=== PATIENT | female | born 1965 | race Caucasian/White ===

== ENCOUNTER 2018-11-20 11:37 | Emergency (ER) | payer BC ==
[2018-11-20 12:52] LABS: BASO % 0.2 % (0-6); EOS % 2.7 % (0-6); GRAN % 56.9 % (47-80); HEMOGLOBIN 11.9 gm/dl (11.6-16.0); LYMPH % 33.9 % (16-45); MEAN CORPUSCULAR HGB CONC 33.1 g/dl (32-36); MONO % 6.3 % (0-9); PLATELET COUNT 149 K/uL (130-400); RED CELL DISTRIBUTION WIDTH 13.9 % (11.5-14.5); WHITE BLOOD COUNT W/O DIFF 4.1 K/uL (4.2-12.2)
[2018-11-20 13:07] LABS: BLOOD UREA NITROGEN 14 mg/dL (6-20); CREATININE 0.8 mg/dL (0.5-0.9); EST GLOMERULAR FILTRATION RATE > 60 mL/min
[2018-11-20 13:09] LABS: GLUCOSE,RANDOM 136 mg/dL (74-109)
[2018-11-20 13:12] LABS: ALB/GLOB RATIO 1.1 (1.1-1.8); ALBUMIN 3.2 g/dL (4.0-5.0); ALKALINE PHOSPHATASE 46 U/L (45-87); ALT/SGPT 10 U/L (<33); AST/SGOT 18 U/L (10.0-35.0)
--- NOTE | 2018-11-20 14:02 | Emergency Department Record ---
History of Present Illness - General Chief complaint: Lower Extremity Pain Stated complaint: LEGS SWOLLEN,RED,SORE Time Seen by Provider: 11/20/18 12:20 Source: Patient Mode of Arrival: Ambulatory Limitations: No limitations - History of Present Illness Initial comments: pt has swelling of her calves, left is greater then r. they are painful. she has never had anything like this before. no trips recently MD Complaint: Extremity pain, Extremity swelling Onset/Timin -: Week(s) Location: Bilateral, Ankle, Lower Leg History of Same: No Radiation: Proximal, Distal Severity scale (1-10): 1 Quality: Aching Consistency: Constant Improves with: Nothing Worsens with: Other Associated Symptoms: Denies other symptoms - Related Data Home Medications Medication Instructions Recorded Confirmed Last Taken Acetaminop W/ Codeine 300/30Mg 1 tab PO Q4H PRN 11/20/18 11/20/18 Unknown [Tylenol #3] Butalb/Acetaminophen/Caffeine 1 each PO Q4H 11/20/18 11/20/18 Unknown [Fioricet] Carvedilol [Coreg] 6.25 mg PO BID 11/20/18 11/20/18 11/20/18 Diazepam [Valium] 5 mg PO QHS 11/20/18 11/20/18 Unknown Gabapentin [Neurontin] 300 mg PO BID 11/20/18 11/20/18 11/20/18 Mometasone Furoate [Elocon] 15 gm TP ASDIR 11/20/18 11/20/18 Unknown Norethindrone-Ethinyl Estrad 1 each PO DAILY 11/20/18 11/20/18 11/20/18 [Nortrel] Rizatriptan Benzoate [Maxalt] 10 mg PO ASDIR 11/20/18 11/20/18 Unknown Allergies Allergy/AdvReac Type Severity Reaction Status Date / Time No Known Drug Allergies Allergy Verified 11/20/18 11:59 Travel Screening - Travel/Exposure Within Last 30 Days Have you traveled within the last 30 days?: No Review of Systems Reviewed: No additional complaints except as noted below Constitutional: Reports: As per HPI. Denies: Chills, Fever, Malaise, Night sweats, Weakness, Weight change Eyes: Reports: As per HPI. Denies: Eye discharge, Eye pain, Photophobia, Vision change ENT: Reports: As per HPI. Denies: Congestion, Dental pain, Ear pain, Epistaxis , Hearing loss, Throat pain Respiratory: Reports: As per HPI. Denies: Cough, Dyspnea, Hemoptysis, Stridor, Wheezes Cardiovascular: Reports: As per HPI. Denies: Arrhythmia, Chest pain, Dyspnea on exertion, Edema, Murmurs, Orthopnea, Palpitations, Paroxysmal nocturnal dyspnea, Rheumatic Fever, Syncope Endocrine: Reports: As per HPI. Denies: Fatigue, Heat or cold intolerance, Polydipsia, Polyuria Gastrointestinal: Reports: As per HPI. Denies: Abdominal pain, Constipation, Diarrhea, Hematemesis, Hematochezia, Melena, Nausea, Vomiting Genitourinary: Reports: As per HPI. Denies: Abnormal menses, Discharge, Dyspareunia, Dysuria, Frequency, Hematuria, Incontinence, Retention, Urgency Musculoskeletal: Reports: As per HPI. Denies: Arthralgia, Back pain, Gout, Joint swelling, Myalgia, Neck pain Skin: Reports: As per HPI. Denies: Bruising, Change in color, Change in hair/ nails, Lesions, Pruritus, Rash Neurological: Reports: As per HPI. Denies: Abnormal gait, Confusion, Headache, Numbness, Paresthesias, Seizure, Tingling, Tremors, Vertigo, Weakness Psychiatric: Reports: As per HPI. Denies: Anxiety, Auditory hallucinations, Depression, Homicidal thoughts, Suicidal thoughts, Visual hallucinations Hematological/Lymphatic: Reports: As per HPI. Denies: Anemia, Blood Clots, Easy bleeding, Easy bruising, Swollen glands Past Medical History - SOCIAL HISTORY Smoking Status: Former smoker Alcohol Use: Occasional Drug Use: None - RESPIRATORY Hx Respiratory Disorders: No - CARDIOVASCULAR Hx Cardio Disorders: Yes Hx Hypertension: Yes - NEURO Hx Neuro Disorders: Yes Hx Headaches: Yes - GI Hx GI Disorders: No - Hx Genitourinary Disorders: No - ENDOCRINE Hx Endocrine Disorders: No - MUSCULOSKELETAL Hx Musculoskeletal Disorders: Yes Hx Arthritis: Yes - PSYCH Hx Psych Problems: No - HEMATOLOGY/ONCOLOGY Hx Hematology/Oncology Disorders: No Family Medical History Any Significant Family History?: Yes Hx Cancer: Father *Cancer Comment: pre-cancerous polyps Hx Diabetes: Father *Diabetes Comment: dialysis Hx Heart Disease: Father Hx HTN: Father Hx Resp Disorders: Father *Resp Comment: father- sleep apnea, asthma Physical Exam - General General Appearance: Alert, Oriented x3, Cooperative, Mild distress - Head Head exam: Normal inspection - Eye Eye exam: Normal appearance, PERRL, EOMI Pupils: Normal accommodation - ENT ENT exam: Normal exam, Mucous membranes moist, Normal external ear exam, Normal orophraynx Ear exam: Normal external inspection. negative: External canal tenderness Nasal Exam: Normal inspection. negative: Discharge, Sinus tenderness Mouth exam: Normal external inspection, Tongue normal Teeth exam: Normal inspection. negative: Dental caries Throat exam: Normal inspection. negative: Tonsillar erythema, Tonsillar exudate - Neck Neck exam: Normal inspection, Full ROM. negative: Tenderness - Respiratory Respiratory exam: Normal lung sounds bilaterally. negative: Respiratory distress - Cardiovascular Cardiovascular Exam: Normal rhythm, Normal heart sounds, Systolic murmur, Tachycardia - GI/Abdominal GI/Abdominal exam: Soft, Normal bowel sounds. negative: Tenderness - Rectal Rectal exam: Deferred - exam: Deferred - Extremities Extremities exam: Calf tenderness, Full ROM, Normal capillary refill, Tenderness , Other (pos lenora and niurka bi laterally l greater then right) - Back Back exam: Reports: Normal inspection, Full ROM. Denies: Muscle spasm, Rash noted, Tenderness - Neurological Neurological exam: Alert, CN II-XII intact, Normal gait, Oriented X3 - Psychiatric Psychiatric exam: Normal affect, Normal mood - Skin Skin exam: Dry, Intact, Normal color, Warm Course Vital Signs 11/20/18 11:47 Temperature 97.7 F Pulse Rate 102 H Respiratory 18 Rate Blood Pressure 131/76 Pulse Ox 95 Medical Decision Making - Lab Data Result diagrams: 11/20/18 12:30 11/20/18 12:30 Lab Results 11/20/18 11/20/18 11/20/18 Range/Units 12:30 12:30 13:36 WBC 4.1 L (4.2-12.2) K/uL RBC 3.60 L (3.80-5.40) M/uL Hgb 11.9 (11.6-16.0) gm/dl Hct 36.0 (35.0-47.0) % MCV 100.0 H (81-97) fl MCH 33.0 (27-33) pg MCHC 33.1 (32-36) g/dl RDW 13.9 (11.5-14.5) % Plt Count 149 (130-400) K/uL MPV 9.0 (7.4-10.4) fl Gran % 56.9 (47-80) % Lymphocytes % 33.9 (16-45) % Monocytes % 6.3 (0-9) % Eosinophils % 2.7 (0-6) % Basophils % 0.2 (0-6) % D-Dimer 0.90 H (0-0.59) mg/L FEU Sodium 140 (136-145) mmol/L Potassium 3.9 (3.4-4.5) mmol/L Chloride 102 (98-107) mmol/L Carbon Dioxide 23.0 (22-29) mmol/L Anion Gap 15.0 (7-16) BUN 14 (6-20) mg/dL Creatinine 0.8 (0.5-0.9) mg/dL Estimated GFR > 60 mL/min Random Glucose 136 H (74-109) mg/dL Calcium 8.0 L (8.6-10.0) mg/dL Total Bilirubin 0.40 (0.2-1.0) mg/dL AST 18 (10.0-35.0) U/L ALT 10 (<33) U/L Alkaline Phosphatase 46 (45-87) U/L Total Protein 6.0 L (6.6-8.7) g/dL Albumin 3.2 L (4.0-5.0) g/dL Globulin 2.8 (1.4-4.8) gm/dL Albumin/Globulin Ratio 1.1 (1.1-1.8) Disposition Disposition: Transfer Clinical Impression: Leg swelling, Elevated d-dimer Disposition: Acute Care Hospital Transfer Transfer To: [facility] Reason For Transfer: needs dopplers of legs Accepting Physician: dr lloyd Time Discussed w/Accepting Physician: 14:03 Quality - Quality Measures Quality Measures: N/A - Blood Pressure Screening Does Patient Have Any of the Following: No Blood Pressure Classification: Pre-Hypertensive BP Reading Systolic Measurement: 131 Diastolic Measurement: 76 Screening for High Blood Pressure: < Pre-Hypertensive BP, F/U Documented > [ [id number]] Pre-Hypertensive Follow-up Interventions: Follow-up with rescreen every year.
== END 2018-11-20 14:38 | disposition short-term general hospital (02) ==
LOC: ER 11:37
DX: R60.0 Localized edema (principal); R79.89 Other specified abnormal findings of blood chemistry; M79.662 Pain in left lower leg; M79.661 Pain in right lower leg; I10 Essential (primary) hypertension; Z87.891 Personal history of nicotine dependence
CPT/HCPCS: 80053; 85025; 85379; 99285